=== PATIENT | male | born 1990 | race Caucasian/White ===

== ENCOUNTER 2016-04-06 20:06 | Emergency (ER) | payer OTHER ==
[2016-04-06 20:25] VITALS: BP 119/60; PULSE 77; TEMP 98.2; BMI 27.2
[2016-04-06] MEDS ORDERED: ERYTHROMYCIN 0.5% OPHTHALMIC OINTMENT 3.5 GM TUBE OS ONE (21:42)
--- NOTE | 2016-04-06 21:47 | PDOC ---
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 lost balance on his ladder and fell backwards striking his ear and had an acute onset onset of pain to his ear. States had some drainage last night but is since resolved. He, no visual changes no redness, no drainage, no fevers or swelling , but states feels he still has a fragment the upper aspect of his eye/eyelid. Occurred: reports: yesterday Severity: reports: mild Pain Location: reports: face, head Method of Injury: Yes: direct blow, fall Loss of Consciousness: no loss of consciousness Associated Symptoms (Fall): denies symptoms Past History - Travel Traveled outside of the country in the last 30 days: No Close contact w/someone who was outside of country & ill: No - Past Medical History Allergies/Adverse Reactions: Allergies Allergy/AdvReac Type Severity Reaction Status Date / Time No Known Allergies Allergy Verified 10/04/15 13:29 Home Medications: Ambulatory Orders NK [No Known Home Medication] 09/26/15 - Immunization History Immunization Up to Date: Yes (2015) - Psycho/Social/Smoking Cessation Hx Anxiety: No Suicidal Ideation: No Smoking History: Never smoked Have you smoked in the past 12 months: No Hx Alcohol Use: Yes (SOCIAL) Drug/Substance Use Hx: No Substance Use Type: None Review of Systems - Review of Systems Able to Perform ROS?: Yes Is the patient limited Tajik proficient: Yes Constitutional: Yes: Symptoms Reported, See HPI, Malaise. No: Fever HEENTM: Yes: Symptoms Reported, See HPI, Eye Pain, Tearing, Ear Pain, Ear Discharge. No: Blurred Vision Respiratory: Yes: See HPI. No: Symptoms reported Integumentary: Yes: Symptoms Reported, See HPI Neurological: Yes: Symptoms reported, See HPI. No: Headache All Other Systems: Reviewed and Negative *Physical Exam - Vital Signs Last Vital Signs Temp Pulse Resp BP Pulse Ox 98.2 F 77 16 119/60 98 04/06/16 20:24 04/06/16 20:24 04/06/16 20:24 04/06/16 20:24 04/06/16 20:24 - Physical Exam General Appearance: Yes: Nourished, Appropriately Dressed, Apparent Distress, Moderate Distress HEENT: positive: DHARA, Pharynx Normal, TM Dull (patient right TM appears to have a perforation at 1. /2:00 with no drainage in canal. reports patient has had extensive problems with his ears per history.), Other (I diet is mildly injected, and tearing. No purulent drainage, no swelling. Fluoresceined staining after tetracaine resolved foreign body sensation the patient reports at 12:00 on lid. No foreign body detected on cornea, no corneal abrasion or no ulcerations noted. Sweeping lid with Q-tip extracted a small dark fragment consistent with a foreign body. After 30 minutes and loss of anesthesia patient states did not feel the foreign body sensation any longer.). negative: Normal ENT Inspection, TMs Normal (right TM looks to be perforated, with no drainage or serious/purulent or bloody drainage in canal.), Nasal Congestion Neck: positive: Supple. negative: Tender Respiratory/Chest: negative: Chest Tender Integumentary: positive: Normal Color, Dry, Warm, Pale. negative: Swelling, Ecchymosis, Bruising Neurologic: positive: detention sergeant II-XII NML intact, Fully Oriented, Alert, Normal Mood/ Affect, Normal Response, Motor Strength 5/5 Progress Note - Progress Note Progress Note: Foreign body to right eyelid extracted, no corneal abrasion. Treated with erythromycin ointment for soothing and prophylaxis Right TM perforated, secondary to trauma versus chronic uncertain. No evidence of infection therefore we will have follow-up with ear nose and throat doctor when possible *DC/Admit/Observation/Transfer Diagnosis at time of Disposition: Foreign body of right eyelid Tympanic membrane disorder Qualifiers: Laterality: right Qualified Code(s): H73.91 - Unspecified disorder of tympanic membrane, right ear - Discharge Dispostion Disposition: HOME Condition at time of disposition: Stable Admit: No - Referrals Referrals: John Gandhi MD [Staff Physician] - - Patient Instructions Printed Discharge Instructions: DI for Tympanic Membrane Perforation-Adult Additional Instructions: Rest, avoid rubbing eyes use eye ointment 3 times a day for 2-3 days as directed, wash hands after use May use Tylenol or Motrin for pain relief Followup with ophthalmology or private physician as needed Follow-up with ear nose and throat doctor for evaluation of right eardrum perforation - Post Discharge Activity Work/School Note: Back to Work
[2016-04-06] MEDS ORDERED: ERYTHROMYCIN 0.5% OPHTHALMIC OINTMENT 3.5 GM TUBE ONE (21:49)
== END 2016-04-06 21:54 | disposition home or self-care (01) ==
LOC: JERFT 20:06
PROC: 08CNXZZ Extirpation of Matter from Right Upper Eyelid, External Approach (ICD-10-PCS; principal; 2016-04-06)
DX: T15.11XA Foreign body in conjunctival sac, right eye, initial encounter (principal); S09.21XA Traumatic rupture of right ear drum, initial encounter; W11.XXXA Fall on and from ladder, initial encounter; Y93.H3 Activity, building and construction; Y92.89 Other specified places as the place of occurrence of the external cause
CPT/HCPCS: 99281-25

== ENCOUNTER 2016-04-17 14:22 | Emergency (ER) | payer OTHER ==
--- NOTE | 2016-04-17 14:26 | PDOC ---
Rapid Medical Evaluation Time Seen by Provider: 04/17/16 14:24 Medical Evaluation: Allergies Allergy/AdvReac Type Severity Reaction Status Date / Time No Known Allergies Allergy Verified 10/04/15 13:29 04/17/16 14:25 26 yo M c/o LLQ pain radiating down towards left testicle x5d. Denies any swelling or injury. Turkish speaking/family(irb compliance coordinator) present
[2016-04-17 14:28] VITALS: BMI 27.2
[2016-04-17 15:15] LABS: URINE APPEARANCE CLOUDY; URINE BILIRUBIN NEGATIVE (NEGATIVE); URINE BLOOD NEGATIVE (NEGATIVE); URINE COLOR YELLOW; URINE GLUCOSE (UA) NEGATIVE (NEGATIVE); URINE KETONE NEGATIVE (NEGATIVE); URINE LEUK ESTERASE NEGATIVE (NEGATIVE); URINE NITRITE NEGATIVE (NEGATIVE); URINE PROTEIN NEGATIVE (NEGATIVE); URINE UROBILINOGEN NEGATIVE E.U./dl (0.2-1.0)
--- NOTE | 2016-04-17 15:35 | PDOC ---
History of Present Illness - General History Source: Patient, Family Exam Limitations: No Limitations - History of Present Illness Initial Comments: 04/17/16 15:40 The patient is a 26-year-old Occitan-Speaking man, accompanied by spouse, with no past medical history who presents to the emergency department via walk-in for further evaluation of a 5 day history of persistent left testicular pain. Information was obtained by patient's spouse who speaks Citizen Of [place]. No trauma, strenuous activity. Patent's spouses states that his pain started on his left lower back that radiates down his left testicle. Patient states that his pain was initially intermittent and bearable, but for the past 24 hours, his pain has become more severe. He also notes associated symptoms of urinary urgency. No fever, chills, weakness, chest pain, abdominal pain, nausea, vomiting, dysuria. Allergies: No Known Drug Allergies Past Surgical History: None reported. Social History: No tobacco and recreational drug use. Social ETOH use. <Neida Davis - Last Filed: 04/17/16 15:58> <Maria De Jesus Grimaldo - Last Filed: 04/19/16 08:02> - General Chief Complaint: Pain Stated Complaint: ABD PAIN /BACK Time Seen by Provider: 04/17/16 14:24 Past History <Neida Davis - Last Filed: 04/17/16 15:58> - Past Medical History Other medical history: DENIES - Immunization History Immunization Up to Date: Yes (2015) - Psycho/Social/Smoking Cessation Hx Anxiety: No Suicidal Ideation: No Smoking History: Never smoked Have you smoked in the past 12 months: No Information on smoking cessation initiated: No Hx Alcohol Use: Yes (SOCIAL) Drug/Substance Use Hx: No Substance Use Type: None <Maria De Jesus Grimaldo - Last Filed: 04/19/16 08:02> - Past Medical History Allergies/Adverse Reactions: Allergies Allergy/AdvReac Type Severity Reaction Status Date / Time No Known Allergies Allergy Verified 04/17/16 14:28 Home Medications: Ambulatory Orders NK [No Known Home Medication] 09/26/15 Review of Systems - Review of Systems Able to Perform ROS?: Yes Comments:: 04/17/16 15:40 GENERAL/CONSTITUTIONAL: No fever or chills. No weakness. HEAD, EYES, EARS, NOSE AND THROAT: No change in vision. No ear pain or discharge. No sore throat. CARDIOVASCULAR: No chest pain or shortness of breath. RESPIRATORY: No cough, wheezing, or hemoptysis. GASTROINTESTINAL: No nausea, vomiting, diarrhea or constipation. GENITOURINARY: Yes: Left testicle discomfort. No dysuria, frequency, or change in urination. MUSCULOSKELETAL: Yes: Left lower back pain. No joint or muscle swelling or pain. No neck pain. SKIN: No rash NEUROLOGIC: No headache, vertigo, loss of consciousness, or change in strength/ sensation. ENDOCRINE: No increased thirst. No abnormal weight change. HEMATOLOGIC/LYMPHATIC: No anemia, easy bleeding, or history of blood clots. ALLERGIC/IMMUNOLOGIC: No hives or skin allergy. <Neida Davis - Last Filed: 04/17/16 15:58> *Physical Exam - Vital Signs Last Vital Signs Temp Pulse Resp BP Pulse Ox 98.2 F 72 18 132/78 99 04/17/16 14:24 04/17/16 14:24 04/17/16 14:24 04/17/16 14:24 04/17/16 14:24 - Physical Exam Comments: 04/17/16 15:41 GENERAL: Awake, alert, and fully oriented, in no acute distress HEAD: No signs of trauma EYES: PERRLA, EOMI, sclera anicteric, conjunctiva clear ENT: Auricles normal inspection, hearing grossly normal, nares patent, oropharynx clear without exudates. Moist mucosa NECK: Normal ROM, supple, no lymphadenopathy, JVD, or masses LUNGS: Breath sounds equal, clear to auscultation bilaterally. No wheezes, and no crackles HEART: Regular rate and rhythm, normal S1 and S2, no murmurs, rubs or gallops ABDOMEN: Soft, nontender, normoactive bowel sounds. No guarding, no rebound. No masses : Left testicle tenderness. Normal line. EXTREMITIES: Normal range of motion, no edema. No clubbing or cyanosis. No cords, erythema, or tenderness NEUROLOGICAL: Cranial nerves II through XII grossly intact. Normal speech. <Neida Davis - Last Filed: 04/17/16 15:58> - Vital Signs Last Vital Signs Temp Pulse Resp BP Pulse Ox 98.2 F 72 18 132/78 99 04/17/16 14:24 04/17/16 14:24 04/17/16 14:24 04/17/16 14:24 04/17/16 14:24 - Physical Exam Comments: Correction to scribe exam- shows L testicle with normal lie (not line). <Maria De Jesus Grimaldo - Last Filed: 04/19/16 08:02> ED Treatment Course - LABORATORY CBC & Chemistry Diagram: 04/17/16 15:50 04/17/16 15:50 - ADDITIONAL ORDERS Additional order review: Laboratory Results 04/17/16 15:00 Urine Color Yellow Urine Appearance Cloudy Urine pH 7.0 Ur Specific [place] 1.019 Urine Protein Negative Urine Glucose (UA) Negative Urine Ketones Negative Urine Blood Negative Urine Nitrite Negative Urine Bilirubin Negative Urine Urobilinogen Negative Ur Leukocyte Esterase Negative <Neida Davis - Last Filed: 04/17/16 15:58> - LABORATORY CBC & Chemistry Diagram: 04/17/16 15:50 04/17/16 15:50 - ADDITIONAL ORDERS Additional order review: Laboratory Results 04/17/16 15:00 Urine Color Yellow Urine Appearance Cloudy Urine pH 7.0 Ur Specific [place] 1.019 Urine Protein Negative Urine Glucose (UA) Negative Urine Ketones Negative Urine Blood Negative Urine Nitrite Negative Urine Bilirubin Negative Urine Urobilinogen Negative Ur Leukocyte Esterase Negative <Maria De Jesus Grimaldo - Last Filed: 04/19/16 08:02> Medical Decision Making - Medical Decision Making 04/17/16 16:[address] Santos at shift change. Pt presents with L testicular pain. No erythema, induration, or masses on exam, but noted to have moderate tenderness. UA wnl. Awaiting ultrasound to further evaluate. <Maria De Jesus Grimaldo - Last Filed: 04/19/16 08:02> *DC/Admit/Observation/Transfer - Attestations Scribe Attestion: 04/17/16 15:41 Documentation prepared by Neida Davis, acting as medical billing assistant for Maria De Jesus Grimaldo MD. <Neida Davis - Last Filed: 04/17/16 15:58> <Maria De Jesus Grimaldo - Last Filed: 04/19/16 08:02> Diagnosis at time of Disposition: Testicular pain, left, Varicocele - Discharge Dispostion Disposition: HOME Condition at time of disposition: Stable - Referrals Referrals: Chris Haas MD [Staff Physician] - - Patient Instructions Printed Discharge Instructions: DI for Varicocele, DI for Testicular Pain Print Language: PUERT[place] RICAN
[2016-04-17] MEDS ORDERED: KETOROLAC TROMETHAMINE 30 MG/1 ML VIAL IVPUSH ONE (15:36)
[2016-04-17] MEDS ORDERED: KETOROLAC TROMETHAMINE 30 MG/1 ML VIAL ONE (15:40)
[2016-04-17 16:02] LABS: EOSINOPHIL 4.6 % (0-4.5); MCH 28.7 pg (25.7-33.7); MCHC 34.2 g/dl (32.0-35.9); MEAN CELL VOLUME 83.9 fl (80-96); MEAN PLT VOLUME 9.8 fl (7.5-11.1); NEUTROPHILS 47.9 % (42.8-82.8); PLATELET COUNT 219 K/MM3 (134-434); RDW 13.1 % (11.9-15.9); WHITE BLOOD COUNT 6.3 K/mm3 (4.0-10.0)
[2016-04-17 16:20] LABS: ALBUMIN 4.1 g/dl (3.4-5.0); ALK PHOS 106 U/L (45-117); ANION GAP 8 (8-16); CALCIUM 9.5 mg/dL (8.5-10.1); CO2 29 mmol/L (21-32); CREATININE 0.7 mg/dL (0.7-1.3); GLUCOSE,RANDOM 84 mg/dL (74-106); SGOT/AST 21 U/L (15-37); SGPT/ALT 37 U/L (12-78)
[2016-04-17 16:21] LABS: BILIRUBIN,TOTAL 0.8 mg/dL (0.2-1.0); TOT PROT 7.4 g/dl (6.4-8.2)
--- NOTE | 2016-04-17 18:26 | PDOC ---
*Physical Exam - Vital Signs Last Vital Signs Temp Pulse Resp BP Pulse Ox 98.2 F 72 18 132/78 99 04/17/16 14:24 04/17/16 14:24 04/17/16 14:24 04/17/16 14:24 04/17/16 14:24 ED Treatment Course - LABORATORY CBC & Chemistry Diagram: 04/17/16 15:50 04/17/16 15:50 - ADDITIONAL ORDERS Additional order review: Laboratory Results 04/17/16 04/17/16 15:50 15:00 Sodium 140 Potassium 4.0 Chloride 103 Carbon Dioxide 29 Anion Gap 8 BUN 13 Creatinine 0.7 Creat Clearance w eGFR > 60 Random Glucose 84 Calcium 9.5 Total Bilirubin 0.8 AST 21 ALT 37 Alkaline Phosphatase 106 Total Protein 7.4 Albumin 4.1 Urine Color Yellow Urine Appearance Cloudy Urine pH 7.0 Ur Specific [place] 1.019 Urine Protein Negative Urine Glucose (UA) Negative Urine Ketones Negative Urine Blood Negative Urine Nitrite Negative Urine Bilirubin Negative Urine Urobilinogen Negative Ur Leukocyte Esterase Negative 04/17/16 15:50 RBC 5.17 MCV 83.9 MCHC 34.2 RDW 13.1 MPV 9.8 Neutrophils % 47.9 Lymphocytes % 38.0 Monocytes % 8.5 Eosinophils % 4.6 H Basophils % 1.0 - Medications Given in the ED: ED Medications Discontinued Medications Generic Name Dose Route Start Last Admin Trade Name Dameonq PRN Reason Stop Dose Admin Ketorolac Tromethamine 30 mg 04/17/16 15:36 04/17/16 15:52 Toradol Injection - IVPUSH 04/17/16 15:37 30 mg ONCE ONE Administration Medical Decision Making - Medical Decision Making 04/17/16 18:22 pt endorsed to me by dr. melgoza. pt is a 26 y/o male with atraumatic left testicular pain for one week. In the ER, patient is awake and alert, afebrile, hemodynamically stable. CBC/CMP/UA within normal limit. There is no evidence of pyuria. Scrotal 7 shows no evidence of testicular torsion or epididymitis. Right and left epididymal head cysts as well as left varicocele is noted. I do not suspect an infectious process at this time. Will discharge with urology follow-up as an outpatient. *DC/Admit/Observation/Transfer Diagnosis at time of Disposition: Testicular pain, left, Varicocele - Discharge Dispostion Disposition: HOME Condition at time of disposition: Stable - Referrals Referrals: Chris Haas MD [Staff Physician] - - Patient Instructions Printed Discharge Instructions: DI for Testicular Pain, DI for Varicocele Print Language: GREEK
[2016-04-17 19:14] VITALS: BP 122/74; PULSE 80; TEMP 98.6
== END 2016-04-17 19:11 | disposition home or self-care (01) ==
LOC: JER 14:22
PROC: 3E0333Z Introduction of Anti-inflammatory into Peripheral Vein, Percutaneous Approach (ICD-10-PCS; principal; 2016-04-17)
DX: N50.812 Left testicular pain (principal); I86.1 Scrotal varices
CPT/HCPCS: 36415; 76870-TC; 80053; 81003; 85025; 99284-25

== ENCOUNTER 2016-05-22 15:04 | Emergency (ER) | payer OTHER ==
[2016-05-22 15:09] VITALS: BP 135/66; PULSE 73; TEMP 97.8; BMI 27.2
--- NOTE | 2016-05-22 16:31 | PDOC ---
History of Present Illness - General Chief Complaint: Laceration Stated Complaint: LT MID FINGER LACERATION Time Seen by Provider: 05/22/16 16:29 History Source: Patient Exam Limitations: No Limitations - History of Present Illness Initial Comments: CHIEF COMPLAINT: 26 y/o afebrile male with no significant PMH c/o left finger laceration. HISTORY OF PRESENT ILLNESS: The patient states he cut the middle finger of his left hand on a saw while working today. He denies numbness/tingling and can move his finger normally. He states his tetanus is UTD as he received on last year after a leg laceration. He did not clean the wound prior to coming to the ER. Vital signs on arrival are within normal limits. REVIEW OF SYSTEMS: GENERAL/CONSTITUTIONAL: No fever/chills. No weakness. No weight change. HEAD, EYES, EARS, NOSE AND THROAT: No change in vision. No ear pain or discharge. No sore throat. MUSCULOSKELETAL: +laceration to left finger. No neck or back pain. SKIN: No rash or easy bruising. NEUROLOGIC: No headache, vertigo, loss of consciousness, or loss of sensation. PHYSICAL EXAM: GENERAL: The patient is awake, alert, and fully oriented, in no acute distress. HEAD: Normal with no signs of trauma. EYES: Pupils equal, round and reactive to light, extraocular movements intact, sclera anicteric, conjunctiva clear. EXTREMITIES: Normal range of motion, no edema. 3cm linear laceration to medial , dorsal 3rd digit of left hand with no active bleeding. Laceration does no appear to be very deep. Margins well approximated. Pt can fully flex and extend the affected finger. Sensation intact in affected finger. NEUROLOGICAL: Normal speech, normal gait. SKIN: Warm, Dry, normal turgor, no rashes or lesions noted. Past History - Past Medical History Allergies/Adverse Reactions: Allergies Allergy/AdvReac Type Severity Reaction Status Date / Time No Known Allergies Allergy Verified 05/22/16 15:09 Home Medications: Ambulatory Orders NK [No Known Home Medication] 09/26/15 Other medical history: NONE - Immunization History Immunization Up to Date: Yes (2015) - Psycho/Social/Smoking Cessation Hx Anxiety: No Suicidal Ideation: No Smoking History: Never smoked Have you smoked in the past 12 months: No Hx Alcohol Use: No Drug/Substance Use Hx: No Substance Use Type: None *Physical Exam - Vital Signs Last Vital Signs Temp Pulse Resp BP Pulse Ox 97.8 F 73 20 135/66 98 05/22/16 15:07 05/22/16 15:07 05/22/16 15:07 05/22/16 15:07 05/22/16 15:07 Procedures - Laceration/Wound Repair Left Medial Dorsal 3rd digit Finger Wound Length: 2.6 to 5.0 cm Wound Explored: clean Wound's Depth, Shape: superficial, linear Irrigated w/ Saline: Yes Betadine Prep: Yes Anesthesia: 1% Lidocaine (Digital block) Amount of Anesthetic (ccs): 5 Wound Debrided: minimal Wound Repaired With: Sutures Suture Size/Type: 4:0 Number of Sutures: 5 Sterile Dressing Applied: Yes Splint Applied: Yes Type of Splint Applied: Finger splint Medical Decision Making - Medical Decision Making A/P: 26 y/o afebrile male with laceration to left 3rd finger. Performed digital block to the affected finger. Irrigated the wound copiously with normal saline. Sutured the wound with 5 sutures. Pt tolerated procedure well. Applied finger splint to covered finger and instructed the patient to keep the area covered and in the splint if working with his hands as to prevent bending finger as the laceration crosses the PIP joint. INstructed him to keep dry for 24 hours, then wash gently with warm soap and water. Pt instructed to return to the ER with any worsening or concerning symptoms. The patient verbalizes understanding of all instructions, has no further questions and is awaiting discharge. *DC/Admit/Observation/Transfer Diagnosis at time of Disposition: Finger laceration Qualifiers: Encounter type: initial encounter Qualified Code(s): S61.219A - Laceration without foreign body of unspecified finger without damage to nail, initial encounter - Discharge Dispostion Disposition: HOME Condition at time of disposition: Improved - Patient Instructions Printed Discharge Instructions: DI for Laceration Repair Additional Instructions: Discharge Instructions: -Keep area dry for 24 hours -After 24 hours gently clean area with soap and water and then cover -Keep finger splint on while working or bending fingers -Return to the ER in 7-10 days for suture removal Print Language: ARABIC
== END 2016-05-22 17:18 | disposition home or self-care (01) ==
LOC: JERFT 15:04
PROC: 0HQGXZZ Repair Left Hand Skin, External Approach (ICD-10-PCS; principal; 2016-05-22)
DX: S61.213A Laceration without foreign body of left middle finger without damage to nail, initial encounter (principal); W31.9XXA Contact with unspecified machinery, initial encounter; Y93.89 Activity, other specified; Y92.9 Unspecified place or not applicable; Y99.0 Civilian activity done for income or pay
CPT/HCPCS: 99282-25

== ENCOUNTER 2018-02-09 12:55 | Day surgery (SDC) | payer OTHER ==
[2018-02-09 13:10] VITALS: BMI 27.9
--- NOTE | 2018-02-09 13:13 | PDOC ---
History of Present Illness - General Chief Complaint: Pain Stated Complaint: ABDOMINAL PAIN Time Seen by Provider: 02/09/18 13:07 History Source: Patient Exam Limitations: No Limitations - History of Present Illness Initial Comments: 02/09/18 13:55 Patient is a 28-year-old male with no past medical or surgical history, who presents to the emergency department today for abdominal pain. Patient states his pain began at 1 AM this morning and was located around the belly button. He describes it as a cramping sharp sensation. Denies eating new foods. Last meal was dinner at approximately 8pm in which he had eggs, toast and jam. He has not been able to eat today. He states that he has not taken any medication for the pain. He states that the pain has gotten worse over the course of the day. Denies fevers, chills, vomiting, diarrhea, constipation, frequency, urgency and hematuria. Past History - Travel Traveled outside of the country in the last 30 days: No Close contact w/someone who was outside of country & ill: No - Past Medical History Allergies/Adverse Reactions: Allergies Allergy/AdvReac Type Severity Reaction Status Date / Time No Known Allergies Allergy Verified 02/09/18 13:04 Home Medications: Ambulatory Orders NK [No Known Home Medication] 09/26/15 COPD: No - Immunization History Immunization Up to Date: Yes (2015) - Suicide/Smoking/Psychosocial Hx Smoking History: Never smoked Have you smoked in the past 12 months: No Information on smoking cessation initiated: No Hx Alcohol Use: No Drug/Substance Use Hx: No Substance Use Type: None Review of Systems - Review of Systems Able to Perform ROS?: Yes Comments:: 02/09/18 13:13 CONSTITUTIONAL: Absent: fever, chills, diaphoresis, generalized weakness, malaise, loss of appetite HEENT: Absent: rhinorrhea, nasal congestion, throat pain, throat swelling, difficulty swallowing, mouth swelling, ear pain, eye pain, visual Changes CARDIOVASCULAR: Absent: chest pain, loss of consciousness, palpitations, irregular heart rate, peripheral edema RESPIRATORY: Absent: cough, shortness of breath, dyspnea with exertion, orthopnea, wheezing, stridor, hemoptysis GASTROINTESTINAL: Present: abdominal pain Absent: abdominal distension, nausea, vomiting, diarrhea , constipation, melena, hematochezia GENITOURINARY: Absent: dysuria, frequency, urgency, hesitancy, hematuria, flank pain, genital pain MUSCULOSKELETAL: Absent: myalgia, arthralgia, joint swelling SKIN: Absent: rash, itching, pallor HEMATOLOGIC/IMMUNOLOGIC: Absent: easy bleeding, easy bruising, lymphadenopathy, frequent infections ENDOCRINE: Absent: unexplained weight gain, unexplained weight loss, heat intolerance, cold intolerance NEUROLOGIC: Absent: headache, focal weakness or paresthesias, dizziness, unsteady gait, seizure, mental status changes, bladder or bowel incontinence PSYCHIATRIC: Absent: anxiety, depression, suicidal or homicidal ideation, hallucinations. Is the patient limited Macedonian proficient: No *Physical Exam - Vital Signs Last Vital Signs Temp Pulse Resp BP Pulse Ox 98.1 F 54 L 18 128/59 L 100 02/09/18 13:04 02/09/18 13:04 02/09/18 13:04 02/09/18 13:04 02/09/18 13:04 - Physical Exam Comments: 02/09/18 13:13 GENERAL: Well developed, well nourished. Awake and alert. Pt appears uncomfortable, hunched over in exam chair. HEENT: Normocephalic, atraumatic. PERRLA, EOMI. No conjunctival pallor. Sclera are non- icteric. Moist mucous membranes. Oropharynx is clear. NECK: Supple. Full ROM. No JVD. Carotid pulses 2+ and symmetric, without bruits. No thyromegaly. No lymphadenopathy. CARDIOVASCULAR: Regular rate and rhythm. No murmurs, rubs, or gallops. Distal pulses are 2+ and symmetric. PULMONARY: No evidence of respiratory distress. Lungs clear to auscultation bilaterally. No wheezing, rales or rhonchi. ABDOMINAL: TTP of the epigastric region and the periumbilical region. (+) guarding, and rovsing signs. Soft. Non-distended. No organomegaly. Normoactive bowel sounds. MUSCULOSKELETAL Normal range of motion at all joints. No bony deformities or tenderness. No CVA tenderness. EXTREMITIES: No cyanosis. No clubbing. No edema. No calf tenderness. SKIN: Warm and dry. Normal capillary refill. No rashes. No jaundice. NEUROLOGICAL: Alert, awake, appropriate. Cranial nerves 2-12 intact. No deficits to light touch and temperature in face, upper extremities and lower extremities. No motor deficits in the in face, upper extremities and lower extremities. Normoreflexic in the upper and lower extremities. Normal speech. Toes are down- going bilaterally. Gait is normal without ataxia. PSYCHIATRIC: Cooperative. Good eye contact. Appropriate mood and affect. Moderate Sedation - Procedure Monitoring Vital Signs: Procedure Monitoring Vital Signs Temperature 98.1 F 02/09/18 13:04 Pulse Rate 54 L 02/09/18 13:04 Respiratory Rate 18 02/09/18 13:04 Blood Pressure 128/59 L 02/09/18 13:04 O2 Sat by Pulse Oximetry (%) 100 02/09/18 13:04 ED Treatment Course - LABORATORY CBC & Chemistry Diagram: 02/09/18 13:47 02/09/18 13:47 Medical Decision Making - Medical Decision Making 02/09/18 14:01 Patient is a 28-year-old male who presents to the emergency department today with abdominal pain for one day. No surgical hx On exam patient appears uncomfortable potential for the exam chair. There is palpation of the epigastric and periumbilical regions. DDX includes: Pancreatitis, appendicitis, gastritis, PUD, gastroenteritis Labs, urine, medication and CT scan were ordered at this time. Reevaluate 02/09/18 18:00 Pt with WBC count of 12.5, no shift. Lytes WNL. Urine is clean CT shows an acute appendicitis at this time. No perforation or abscess noted on CT Blood cultures obtained Metronidozole and ceftriaxone given 2nd liter of fluids running a this time 6mg of morphine given for pain Consulted Dr. Franco. States she will take the patient as an ASU case. *DC/Admit/Observation/Transfer Diagnosis at time of Disposition: Appendicitis Qualifiers: Appendicitis type: acute appendicitis Acute appendicitis type: with localized peritonitis Appendicitis gangrene presence: without gangrene Appendicitis perforation presence: without perforation Appendicitis abscess presence: without abscess Qualified Code(s): K35.30 - Acute appendicitis with localized peritonitis, without perforation or gangrene - Discharge Dispostion Condition at time of disposition: Guarded Decision to Admit order: Yes - Referrals - Patient Instructions - Post Discharge Activity
[2018-02-09] MEDS ORDERED: SODIUM CHLORIDE 1,000 ML IV STA (13:39)
[2018-02-09] MEDS ORDERED: ACETAMINOPHEN 1000 MG/100 ML VIAL (NON FORMULARY) IVPB ONE (13:39)
[2018-02-09] MEDS ORDERED: FAMOTIDINE 20 MG/50 ML IVPB 20 MG/50 ML MG IVPB ONE ×2 (13:40→13:44)
[2018-02-09] MEDS ORDERED: ACETAMINOPHEN INJECTION 100 ML IVPB ONE (13:44)
[2018-02-09 14:29] LABS: BASO % 0.4 % (0-2.0); EOS % 0.4 % (0-4.5); HEMATOCRIT 45.9 % (35.4-49); LYMPH % 11.9 % (8-40); MCH 29.6 pg (25.7-33.7); MCHC 34.9 g/dl (32.0-35.9); MEAN CELL VOLUME 84.7 fl (80-96); MEAN PLT VOLUME 10.4 fl (7.5-11.1); MONO % 5.7 % (3.8-10.2); NEUT % 81.6 % (42.8-82.8); PLATELET COUNT 224 K/MM3 (134-434); PROTHROMBIN TIME (PATIENT) 11.8 SEC (9.7-13.0); RBC 5.42 M/mm3 (4.00-5.60); RDW 12.8 % (11.9-15.9); WHITE BLOOD COUNT 12.5 K/mm3 (4.0-10.0)
[2018-02-09 14:45] LABS: ALBUMIN 4.7 g/dl (3.4-5.0); ALK PHOS 112 U/L (45-117); ANION GAP 7 MMOL/L (8-16); BILIRUBIN,TOTAL 0.7 mg/dL (0.2-1); BLOOD UREA NITROGEN 11 mg/dL (7-18); CHLORIDE 103 mmol/L (98-107); CO2 28 mmol/L (21-32); CREATININE 0.8 mg/dL (0.55-1.3); GLUCOSE,RANDOM 89 mg/dL (74-106); LIPASE 109 U/L (73-393); POTASSIUM 3.9 mmol/L (3.5-5.1); SGOT/AST 28 U/L (15-37); SGPT/ALT 50 U/L (13-61); SODIUM 137 mmol/L (136-145); TOT PROT 8.2 g/dl (6.4-8.2)
[2018-02-09 15:00] LABS: URINE APPEARANCE CLEAR; URINE BILIRUBIN NEGATIVE (<2.0 mg/dL); URINE COLOR LTYELLOW; URINE GLUCOSE (UA) NEGATIVE (NEGATIVE); URINE KETONE NEGATIVE (NEGATIVE); URINE LEUK ESTERASE NEGATIVE (NEGATIVE); URINE NITRITE NEGATIVE (NEGATIVE); URINE PROTEIN NEGATIVE (NEGATIVE); URINE UROBILINOGEN NEGATIVE mg/dL (0.2-1.0)
[2018-02-09] MEDS ORDERED: morphine CARPU-JECT 2 MG/1 ML DISP.SYRIN IVPUSH ONE (16:40)
[2018-02-09] MEDS ORDERED: MORPHINE SULFATE 2 MG/ML VIAL ONE (16:45)
[2018-02-09] MEDS ORDERED: CEFTRIAXONE 1,000 MG in DEXTROSE 5%-WATER - 50 ML IVPB ONE (17:24)
[2018-02-09] MEDS ORDERED: morphine CARPU-JECT 4 MG/1 ML DISP.SYRIN IVPUSH ONE (17:24)
[2018-02-09] MEDS ORDERED: morphine SULFATE 4 MG/ML VIAL ONE (17:30)
[2018-02-09] MEDS ORDERED: CEFTRIAXONE 1 GM/50 ML BAG ONE (17:30)
[2018-02-09] MEDS ORDERED: SODIUM CHLORIDE 1,000 ML IV SCH ×2 (17:30→17:40)
[2018-02-09] MEDS ORDERED: BUPIVACAINE HCL/PF 0.5% (5MG/ML) 10 ML VIAL ONE (18:15)
--- NOTE | 2018-02-09 19:11 | HP ---
Admitting History and Physical - Primary Care Physician PCP: none - Admission Chief Complaint: periumbilical and RLQ pain, nausea, chills History of Present Illness: 28yo M, healthy with no PMH/PSH except occasional smoker of cigarettes and marijuana, social drinker, began experiencing periumbilical pain early this morning, associated with dizziness, chills, nausea but no vomiting. He had 3 normal BMs this morning. Last po was dinner last night, but had some papaya juice about 10am and few sips of water in ED. In ER, he has wbc 13, mildly dehydrated by labs, and CT shows acute appendicitis without abscess or perforation. He is seen and examined in ER holding with girlfriend present, who helped translate. He is in moderate pain, but can move on stretcher. He complains of being thirsty and dry throat. Pain is periumbilical and RLQ. He feels it is getting worse. History Source: Patient, Significant Other (girlfriend at bedside) Limitations to Obtaining History: Language Barrier (Bur[place]ian - used phone spanish medical interpreter for OR consent) - Past Medical History Additional Past Medical History: denies - Past Surgical History Past Surgical History: Yes: None - Smoking History Smoking history: Current some day smoker (about once a week) Have you smoked in the past 12 months: Yes - Alcohol/Substance Use Hx Alcohol Use: Yes (social) History of Substance Use: reports: Marijuana (occasionally, last few days ago) - Social History ADL: Independent Occupation: works stocking fruit in grocery store Home Medications - Allergies Allergies/Adverse Reactions: Allergies Allergy/AdvReac Type Severity Reaction Status Date / Time No Known Allergies Allergy Verified 02/09/18 13:04 - Home Medications Home Medications: Ambulatory Orders NK [No Known Home Medication] 09/26/15 Family Disease History - Family Disease History Family History: Unremarkable (noncontributory) Review of Systems - Review of Systems Constitutional: reports: Chills, Loss of Appetite. denies: Fever Eyes: denies: Blurred Vision, Recent Change in Vision HENT: denies: Difficult Swallowing, Throat Pain Neck: denies: Swollen Glands, Tenderness Cardiovascular: denies: Chest Pain, Palpitations Respiratory: denies: Cough, SOB Gastrointestinal: reports: Abdominal Pain (with hpi), Nausea (with hpi). denies : Constipation, Diarrhea, Vomiting Genitourinary: denies: Burning, Dysuria Musculoskeletal: reports: Back Pain (with hpi). denies: Joint Pain, Muscle Pain Integumentary: denies: Change in Color, Rash Neurological: reports: Dizziness (with hpi). denies: Headache Physical Examination Vital Signs: Vital Signs Temperature 97.7 F 02/09/18 17:42 Pulse Rate 66 02/09/18 17:42 Respiratory Rate 18 02/09/18 17:42 Blood Pressure 123/75 02/09/18 17:42 O2 Sat by Pulse Oximetry (%) 100 02/09/18 17:42 Constitutional: Yes: Well Nourished, Calm, Moderate Distress Eyes: Yes: Conjunctiva Clear, EOM Intact HENT: Yes: Atraumatic, Normocephalic Neck: Yes: Supple, Trachea Midline Cardiovascular: Yes: Regular Rate and Rhythm. No: Murmur Respiratory: Yes: Regular, CTA Bilaterally Gastrointestinal: Yes: Normal Bowel Sounds (to hypoactive), Soft, Hernia (very small umbilical), Tenderness (RLQ at McBurney's, also diffusely but less than RLQ, least in LUQ). No: Distention ...Rectal Exam: Yes: Deferred Renal/: No: CVA Tenderness - Left, CVA Tenderness - Right Musculoskeletal: No: Joint Stiffness, Joint Swelling Extremities: No: Cool, Cyanosis Edema: No Peripheral Pulses WNL: Yes Integumentary: Yes: Tattoos. No: Jaundice, Rash Neurological: Yes: Alert, Oriented Psychiatric: Yes: Alert, Oriented Labs: CBC, BMP 02/09/18 13:47 02/09/18 13:47 CMP Sodium 137 mmol/L (136-145) 02/09/18 13:47 Potassium 3.9 mmol/L (3.5-5.1) 02/09/18 13:47 Chloride 103 mmol/L (98-107) 02/09/18 13:47 Carbon Dioxide 28 mmol/L (21-32) 02/09/18 13:47 Anion Gap 7 MMOL/L (8-16) L 02/09/18 13:47 BUN 11 mg/dL (7-18) 02/09/18 13:47 Creatinine 0.8 mg/dL (0.55-1.3) 02/09/18 13:47 Creat Clearance w eGFR > 60 (>60) 02/09/18 13:47 Random Glucose 89 mg/dL (74-106) 02/09/18 13:47 Calcium 9.0 mg/dL (8.5-10.1) 02/09/18 13:47 Total Bilirubin 0.7 mg/dL (0.2-1) 02/09/18 13:47 AST 28 U/L (15-37) 02/09/18 13:47 ALT 50 U/L (13-61) 02/09/18 13:47 Alkaline Phosphatase 112 U/L (45-117) 02/09/18 13:47 Total Protein 8.2 g/dl (6.4-8.2) 02/09/18 13:47 Albumin 4.7 g/dl (3.4-5.0) 02/09/18 13:47 Lipase 109 U/L (73-393) 02/09/18 13:47 INR, PTT INR 1.00 (0.83-1.09) 02/09/18 13:47 Urine Test Results Urine Color Ltyellow 02/09/18 13:47 Urine Appearance Clear 02/09/18 13:47 Urine pH 6.0 (5.0-8.0) 02/09/18 13:47 Ur Specific [place] 1.024 (1.010-1.035) 02/09/18 13:47 Urine Protein Negative (NEGATIVE) 02/09/18 13:47 Urine Glucose (UA) Negative (NEGATIVE) 02/09/18 13:47 Urine Ketones Negative (NEGATIVE) 02/09/18 13:47 Urine Blood Negative (NEGATIVE) 02/09/18 13:47 Urine Nitrite Negative (NEGATIVE) 02/09/18 13:47 Urine Bilirubin Negative (<2.0 mg/dL) 02/09/18 13:47 Ur Leukocyte Esterase Negative (NEGATIVE) 02/09/18 13:47 Imaging - Results Cat Scan: Report Reviewed, Image Reviewed (images personally reviewed - enlarged appendix with no abscess or perforation) Problem List - Problems (1) Acute appendicitis with generalized peritonitis, without abscess Assessment/Plan: admit to surgery 23H/satellite NPO/IVF got Ceftriaxone, Flagyl in ER; periop abx pain meds prn DVT prophylaxis Discussed with patient risks, benefits and alternatives of laparoscopic possible open appendectomy, including but not limited to bleeding, infection, injury to adjacent structures, intestinal leak or injury, intraabdominal abscess , incisional hernia, need for further procedures, ; alternatives include antibiotics, delayed or no surgery - risks of this include failure of nonoperative therapy, perforation, sepsis, recurrence, . Patient desires to proceed with operation - will take to OR for above. Informed consent signed for same using Bur[place]ian telephone spanish medical interpreter. Code(s): K35.20 - ACUTE APPENDICITIS WITH GEN PERITONITIS, WITHOUT ABSCESS Qualifiers: Appendicitis gangrene presence: without gangrene Appendicitis perforation presence: unspecified whether perforation present Qualified Code(s): K35.20 - Acute appendicitis with generalized peritonitis, without abscess (2) Right lower quadrant abdominal tenderness with rebound tenderness Code(s): R10.823 - RIGHT LOWER QUADRANT REBOUND ABDOMINAL TENDERNESS (3) Periumbilical abdominal pain Code(s): R10.33 - PERIUMBILICAL PAIN (4) Nausea alone Code(s): R11.0 - NAUSEA
[2018-02-09] MEDS ORDERED: fentaNYL CITRATE 250 MCG/5 ML VIAL ONE (19:33)
[2018-02-09] MEDS ORDERED: SUCCINYLCHOLINE CHLORIDE 200 MG/10 ML VIAL ONE (19:33)
[2018-02-09] MEDS ORDERED: PROPOFOL 20 ML ONE (19:33)
[2018-02-09] MEDS ORDERED: cefOXitin SODIUM 2 GM VIAL (RESTRICTED TO ID) IVPB ONE (19:37)
[2018-02-09] MEDS ORDERED: ceFAZolin SODIUM 1 GM VIAL IVPB ONE (19:37)
[2018-02-09] MEDS ORDERED: ROCURONIUM BROMIDE 50 MG/5 ML VIAL ONE (19:42)
[2018-02-09] MEDS ORDERED: CEFOXITIN SODIUM 1 GM IVPB ONE ×2 (19:44→19:45)
[2018-02-09] MEDS ORDERED: DEXAMETHASONE SOD PHOSPHATE 4 MG/1 ML VIAL ONE (19:59)
[2018-02-09] MEDS ORDERED: GLYCOPYRROLATE 0.2 MG/1 ML VIAL ONE (20:35)
[2018-02-09] MEDS ORDERED: NEOSTIGMINE METHYLSULFATE 0.5 MG/ML - 10 ML MDV ONE (20:35)
[2018-02-09] MEDS ORDERED: ONDANSETRON 4 MG/2 ML VIAL IVPUSH PRN (21:10)
--- NOTE | 2018-02-09 21:13 | OP ---
Operative Note - Note: Operative Date: 02/09/18 Pre-Operative Diagnosis: acute appendicitis with generalized peritonitis Operation: laparoscopic appendectomy Findings: enlarged, inflamed appendix, somewhat bulbous; yellow fluid in pelvis, suctioned Post-Operative Diagnosis: Same as Pre-op Surgeon: Clif Franco Anesthesiologist/GROUND SERVICES INSTRUCTOR: Venecia Villarreal Anesthesia: General, Local (10ml 0.5% marcaine) Specimens Removed: appendix to pathology Estimated Blood Loss (mls): 5 Drains & Tubes with Location: Randhawa out at end of case Drains, Volume Out (mls): 500 (UOP) Fluid Volume Replaced (mls): 1,200 (crystalloid) Operative Report Dictated: Yes
[2018-02-09] MEDS ORDERED: LACTATED RINGERS SOLUTION 1,000 ML IV SCH ×2 (21:15→21:28)
[2018-02-09] MEDS ORDERED: IBUPROFEN 800 MG/8 ML IJ IVPB ONE (21:20)
[2018-02-09] MEDS: IBUPROFEN 800 MG/8 ML IJ IVPB ONE (21:30)
--- NOTE | 2018-02-09 22:39 | OP ---
DATE OF OPERATION: 02/09/2018 PREOPERATIVE DIAGNOSIS: Acute appendicitis with generalized peritonitis. POSTOPERATIVE DIAGNOSIS: Acute appendicitis with generalized peritonitis. PROCEDURE: Laparoscopic appendectomy. SURGEON: Clif Franco MD ANESTHESIA: General endotracheal and local, 10 mL of 0.5% Marcaine. ESTIMATED BLOOD LOSS: 5 mL FLUIDS: Crystalloid 1200 mL. URINE OUTPUT: 500 mL SPECIMEN: Appendix to Pathology. FINDINGS: Enlarged, inflamed, somewhat bulbous appendix. Also, yellow fluid in the pelvis which was suctioned but not irrigated. DISPOSITION: Stable and extubated to PACU. INDICATION FOR PROCEDURE: Patient is a 28-year-old [facility] male with no significant past medical or surgical history, who began experiencing periumbilical pain early this morning, associated with some dizziness, chills, and nausea but no vomiting. His last p.o. was dinner last night, but he had some juice this morning and a little bit of water since. In the emergency room, he had a white count of 13,000, and a CT showed acute appendicitis without abscess or perforation. Both the CT and his exam were consistent with acute appendicitis with peritonitis as he was tender diffusely, although mostly in the right lower quadrant. Risks, benefits, and alternatives of laparoscopic, possible open appendectomy were discussed with the patient including, but not limited to, bleeding, infection, injury to adjacent structures, intestinal leak or injury, intraabdominal abscess, incisional hernia, need for further procedures, and alternatives inclusive of antibiotics and delayed or no surgery with attendant risks of failure of nonoperative therapy, perforation, sepsis, recurrence, and . This was done utilizing a Wol[place] telephone solar installation technician. The patient desired to proceed with the operation and signed informed consent for the same, for which he is now brought to the operating room. OPERATIVE TECHNIQUE: The patient was brought to the operating room, laid supine on the operating table. Sequential compression devices were applied to bilateral lower extremities. Two grams of cefoxitin were given as preoperative antibiotic in the OR. After induction and intubation by Anesthesia, patient's abdomen was clipped of hair. Randhawa catheter was placed in his bladder, which was removed at the end of the case, and his abdomen was prepped and draped in sterile fashion. A small infraumbilical midline incision was made with a scalpel and carried into subcutaneous tissues with electrocautery until the abdominal wall fascia was identified, scored, and elevated with Jarad clamps. Peritoneum was entered bluntly with the tip of a clamp and a fingertip inserted to ensure entry into the abdominal cavity and the absence of any underlying adhesions. A stay suture of 0 Vicryl was placed in the fascia in [id number] fashion for later closure, and the Rohan trocar was introduced directly into the abdominal cavity and secured in place with the balloon. The abdomen was insufflated with carbon dioxide. Patient was placed in Trendelenburg position, and a laparoscope inserted to inspect the abdominal cavity. Two additional 5-mm ports were placed under direct vision in the suprapubic and left lower quadrant areas. At which point, the appendix was easily identifiable in the right lower quadrant as an enlarged, inflamed, somewhat bulbous structure that jutted up from the rest of the intestines. The camera was moved to the left lower quadrant port. Two graspers were inserted through the other ports and used to manipulate the appendix, to identify the base near the cecum, appeared to be normal. One grasper was exchanged for a [place] dissector which was used to create a window in the mesentery at the base of the appendix where it joined the cecum, and a 45 purple load of the Endo WNE stapler was used to transect the appendiceal base at the cecal junction. The staple line was noted to be hemostatic. The appendix was manipulated again such that the mesoappendix was easily reachable, and a 45 white load of the Endo WEN stapler then used to come across the mesoappendix. One last little bit of tissue remained attached and required completion with an additional staple load. Just prior to this, the yellow fluid in the patient's pelvis had been suctioned with a suction drying oven tender tool. Irrigation was not undertaken. Once the appendix had been completely , it was placed in an Endo Catch, and the operative field and pelvis re-inspected, suctioned clear of any remaining fluid, and again, all staple lines were noted to be hemostatic. The appendix in the bag was then retrieved out the umbilical port site along with the port itself. With the camera in the left lower quadrant port, the suprapubic port was removed under direct vision, and then, the port and camera were also removed and the abdomen exsufflated of carbon dioxide. The suture was tied at the umbilicus to close the fascia there. Hemostasis was achieved in the port sites with electrocautery where necessary, and the skin was closed with 4-0 Vicryl subcuticular sutures including a running at the umbilicus. Benzoin and Steri-Strips were applied to each incision, and dressings of gauze and Tegaderm placed over these. Randhawa catheter was again removed from the patient's bladder at the end of the case. Counts were correct at the end of the procedure. Patient was then awakened and extubated by Anesthesia, moved back to a stretcher, and taken to the recovery room in stable condition, having tolerated the procedure well. Clif Franco M.D. [id number]
[2018-02-10] MEDS ORDERED: ACETAMINOPHEN 325 MG TABLET (FP) PO SCH
[2018-02-10] MEDS: ACETAMINOPHEN 325 MG TABLET (FP) PO SCH ×3 (00:47→12:26)
[2018-02-10] MEDS ORDERED: CEFOXITIN SODIUM/DEXTROSE,ISO 2 GM/50 ML BAG IVPB SCH (02:00)
[2018-02-10] MEDS: CEFOXITIN SODIUM 2 GM in DEXTROSE 5%-WATER - 100 ML IVPB SCH ×2 (02:22→10:38)
[2018-02-10] MEDS: IBUPROFEN 600 MG TABLET (FP) PO SCH ×2 (03:48→11:17)
[2018-02-10] MEDS: IBUPROFEN 800 MG/8 ML IJ IVPB ONE (08:01)
--- NOTE | 2018-02-10 08:43 | PN ---
Progress Note (short form) - Note Progress Note: ANESTHESIOLOGY POST-OP CHECK 28M s/p lap appendectomy under general anesthesia, POD #1. No acute complaints. Denies N/V. Pain 7/10 and tolerable. Vital Signs Temperature 98.3 F 02/10/18 06:44 Pulse Rate 90 02/10/18 06:44 Respiratory Rate 20 02/10/18 06:44 Blood Pressure 128/76 02/10/18 06:44 O2 Sat by Pulse Oximetry (%) 95 02/09/18 22:15 Active Medications Acetaminophen (Tylenol -) 650 mg PO Q6H [facility] Last Admin: 02/10/18 07:23 Dose: Not Given Cefoxitin Sodium 2 gm/ (Dextrose) 100 mls @ 200 mls/hr IVPB Q8H-IV JOHN PAUL; Protocol Stop: 02/10/18 10:29 Last Admin: 02/10/18 02:22 Dose: 200 mls/hr Lactated Ringer's (Lactated Ringers Solution) 1,000 mls @ 125 mls/hr IV ASDIR JOHN PAUL Last Admin: 02/09/18 21:28 Dose: 125 mls/hr Ibuprofen (Motrin -) 600 mg PO Q6H [facility] PAUL Last Admin: 02/10/18 03:48 Dose: 600 mg Gen: awake, alert, NAD No apparent anesthesia complications. Pain controlled. Continue management as per primary team.
[2018-02-10] MEDS ORDERED: IBUPROFEN 600 MG TABLET (FP) PO SCH ×2 (09:00)
[2018-02-10 12:04] VITALS: BP 127/69; PULSE 84; TEMP 98.4
--- NOTE | 2018-02-10 12:46 | DS ---
Physical Examination Vital Signs: Vital Signs Temperature 98.4 F 02/10/18 10:00 Pulse Rate 84 02/10/18 10:00 Respiratory Rate 18 02/10/18 10:00 Blood Pressure 127/69 02/10/18 10:00 O2 Sat by Pulse Oximetry (%) 95 02/09/18 22:15 Findings/Remarks: Pt seen in solarium with girlfriend and examined back in bed, ambulating well. Admits to some pain, mostly umbilical. Pain is controlled with alternating tylenol and ibuprofen. He has tolerated breakfast, and is voiding in urinal. No flatus or BM yet, + belching. Pain in RLQ is nearly gone. Constitutional: Yes: Well Nourished, No Distress, Calm Eyes: Yes: Conjunctiva Clear, EOM Intact HENT: Yes: Atraumatic, Normocephalic Cardiovascular: Yes: Regular Rate and Rhythm Respiratory: Yes: Regular, CTA Bilaterally Gastrointestinal: Yes: Normal Bowel Sounds (normal to less, present in 4 quadrants), Soft, Distention (mild), Tenderness (mild RLQ, also incisional, mainly at umbilical site) Renal/: No: [place] Present, Incontinence Extremities: No: Cool, Cyanosis Integumentary: Yes: Incision (x3 dressed). No: Jaundice, Rash Wound/Incision: Yes: Steri Strips (under dressings), Dressing Dry and Intact (x3 ). No: Dressing Removed Neurological: Yes: Alert, Oriented. No: Unsteady Gait Labs: no new labs Discharge Summary Reason For Visit: ACUTE APPENDICITIS Current Active Problems Acute appendicitis with generalized peritonitis, without abscess (Acute) Nausea alone (Acute) Periumbilical abdominal pain (Acute) Right lower quadrant abdominal tenderness with rebound tenderness (Acute) Procedures: Principal: laparoscopic appendectomy Hospital Course: 28yo healthy M, occasional cigarette and MJ smoker and social drinker, presented with periumbilical pain for less than a day, associated with nausea, chills, but no vomiting. The pain also moved to the RLQ, and in ER, he had wbc 13, with CT showing acute appendicitis. He was taken to OR for uneventful laparoscopic appendectomy, and treated with perioperative antibiotics. Postop, pain has been controlled with alternating tylenol and ibuprofen. He has voided, been up ambulating, and tolerated diet. He is discharged home with lifting restrictions to f/u with surgery and a referral for primary care. Time spent on discharge 35 minutes. Condition: Good - Instructions Diet, Activity, Other Instructions: Postoperative instructions: You had a laparoscopic appendectomy on 02/09/[address] Clif Franco of [facility]. Activity: Resume your usual activities gradually, but no heavy exertion or lifting more than 10-15 pounds for 1 month. Remove dressings 48 hours after surgery; sticky tapes underneath will fall off by themselves. You may shower daily starting then, just pat the incision areas dry. No bath or swimming until skin incisions have healed. Eat lightly at first, but advance to your usual diet as tolerated. Pain: For pain, you may use and alternate Tylenol (acetaminophen, regular or extra strength) 1-2 pills and/or ibuprofen 200 mg (1-3 pills) every 6 hours each as needed; this means that you can take one OR the other at 3-hour intervals. If you are prescribed a Tylenol/narcotic combination for severe pain , use it instead of plain Tylenol as needed and switch back when your pain starts decreasing. Do not take more than 4000mg of acetaminophen in a day. Take medications as prescribed or indicated on the labeling. Follow-up: Call Dr. Franco's office at [phone] to make your postop appointment (Friday in 2-3 weeks after surgery). Clinic is held in the [facility] on the first floor of [facility]. Call the office if you have: * increasing pain not responsive to pain medication * fever of 101F or higher * vomiting * unusual or increasing bleeding or drainage from wounds * increasing redness or swelling at wound sites * inability to urinate Also, see your primary medical doctor within 1-2 weeks. If you do not have one, you have been given a referral to call for an appointment. Referrals: Artie Bennett MD [Staff Physician] - Disposition: HOME - Home Medications Comprehensive Discharge Medication List: Ambulatory Orders Acetaminophen [Tylenol .Regular Strength -] 650 mg PO Q6H tablet 02/10/18 Ibuprofen [Motrin -] 600 mg PO Q6H tablet 02/10/18
--- NOTE | 2018-02-12 15:46 | PATH ---
Surgical Pathology Report Patient Name: KOJO DELEON [facility]. Rec. #: [id number] /Age/Gender: 1990 (Age: 28) / M Account: [id number] Location: AMBULATORY SURG Taken: 02/09/2018 Received: 02/11/2018 Reported: 02/12/2018 Physicians: Alis Bhatti M.D. Specimen(s) Received APPENDIX Clinical History Acute appendicitis with peritonitis Final Diagnosis APPENDIX, APPENDECTOMY: ACUTE APPENDICITIS AND PERIAPPENDICITIS. Electronically Signed Zahra Means M.D. Gross Description Received in formalin, labeled "appendix," is a 7.5 cm. in length vermiform appendix with a stapled margin of resection and moderate attached fat. The serosa is maddox-zepeda with attached exudate. Sectioning reveals a markedly dilated lumen containing pus. The wall of the appendix averages 0.1 cm. in thickness. [employer] sections are submitted in one cassette. /02/11/2018 [facility]02/11/2018
== END 2018-02-10 13:00 | disposition home or self-care (01) ==
LOC: JER 12:55 → JASUSAT 19:06 → J8W 23:14 → JASUSAT 02-10 13:00
PROVIDERS: ATTEND Surgery
PROC: 0DTJ4ZZ Resection of Appendix, Percutaneous Endoscopic Approach (ICD-10-PCS; principal; 2018-02-09 19:50)
DX: K35.33 Acute appendicitis with perforation, localized peritonitis, and gangrene, with abscess (principal)
CPT/HCPCS: 36415; 74177-TC; 80053; 81003; 83690; 85025; 85610; 87040; 87086; 88304-TC; 94760; 99285-25; J0131; J7030

== ENCOUNTER 2019-04-23 11:22 | Emergency (ER) | payer SELFPAY ==
[2019-04-23 11:36] VITALS: TEMP 98.1; BMI 27.6
[2019-04-23] MEDS ORDERED: SODIUM CHLORIDE 1,000 ML IV STA (12:48)
[2019-04-23] MEDS ORDERED: ONDANSETRON 4 MG/2 ML VIAL IVPUSH ONE (12:48)
[2019-04-23] MEDS ORDERED: FAMOTIDINE 20 MG/50 ML IVPB 20 MG/50 ML MG IVPB ONE ×2 (12:48→13:11)
[2019-04-23] MEDS ORDERED: MAG HYDROX/AL HYDROX/SIMETH 30 ML UNIT-DOSE CUP PO ONE (12:49)
[2019-04-23] MEDS ORDERED: ONDANSETRON 4 MG/2 ML VIAL ONE (13:11)
[2019-04-23] MEDS ORDERED: MAG HYDROX/AL HYDROX/SIMETH 30 ML UNIT-DOSE CUP ONE (13:11)
[2019-04-23 13:26] LABS: BASO % 0.7 % (0-2.0); EOS % 1.7 % (0-4.5); HEMATOCRIT 45.8 % (35.4-49); LYMPH % 26.8 % (8-40); MCH 29.7 pg (25.7-33.7); MEAN CELL VOLUME 84.7 fl (80-96); MEAN PLT VOLUME 9.4 fl (7.5-11.1); MONO % 7.1 % (3.8-10.2); NEUT % 63.7 % (42.8-82.8); PLATELET COUNT 239 K/MM3 (134-434); RBC 5.41 M/mm3 (4.00-5.60); WHITE BLOOD COUNT 7.2 K/mm3 (4.0-10.0)
[2019-04-23 13:59] LABS: ALBUMIN 4.2 g/dl (3.4-5.0); BILIRUBIN,TOTAL 1.6 mg/dL (0.2-1); BLOOD UREA NITROGEN 11.8 mg/dL (7-18); CALCIUM 8.8 mg/dL (8.5-10.1); CREATININE 0.7 mg/dL (0.55-1.3); POTASSIUM 4.9 mmol/L (3.5-5.1); TOT PROT 7.9 g/dl (6.4-8.2)
--- NOTE | 2019-04-23 14:13 | PDOC ---
History of Present Illness - General History Source: Patient - History of Present Illness Timing/Duration: reports: other Abdominal Pain Onset Location: reports: epigastric Pain Radiation: reports: no radiation <Kriss Brownlee - Last Filed: 04/23/19 14:57> <Maria De Jesus Grimaldo - Last Filed: 04/23/19 16:56> - General Chief Complaint: Nausea/Vomiting Stated Complaint: HEARTBURN/VOMITING Time Seen by Provider: 04/23/19 11:56 Past History - Past Medical History COPD: No GI Disorders: Yes (GERD) - Immunization History Immunization Up to Date: Yes (2015) - Psycho Social/Smoking Cessation Hx Smoking History: Never smoked Have you smoked in the past 12 months: Yes Hx Alcohol Use: No Drug/Substance Use Hx: No Substance Use Type: None <Kriss Brownlee - Last Filed: 04/23/19 14:57> <Maria De Jesus Grimaldo - Last Filed: 04/23/19 16:56> - Past Medical History Allergies/Adverse Reactions: Allergies Allergy/AdvReac Type Severity Reaction Status Date / Time No Known Allergies Allergy Verified 04/23/19 11:36 Home Medications: Ambulatory Orders Acetaminophen [Tylenol .Regular Strength -] 650 mg PO Q6H tablet 02/10/18 Ibuprofen [Motrin -] 600 mg PO Q6H tablet 02/10/18 Acetaminophen [Tylenol -] 1,000 mg PO Q6H #30 tablet 04/23/19 Famotidine [Pepcid -] 20 mg PO BID #14 tablet 04/23/19 Mag Hydrox/Al Hydrox/Simeth [Mylanta Suspension -] 30 ml PO Q6H #1 bottle 04/23/19 Ondansetron HCl [Zofran] 4 mg PO Q8H #12 tablet 04/23/19 Review of Systems - Review of Systems Constitutional: No: Chills, Fever ABD/GI: Yes: Nausea, Vomiting. No: Blood Streaked Bowels, Constipated, Diarrhea : No: Dysuria, Flank Pain, Hematuria <Kriss Brownlee Last Filed: 04/23/19 14:57> *Physical Exam - Vital Signs Last Vital Signs Temp Pulse Resp BP Pulse Ox 98.1 F 75 16 127/67 100 04/23/19 11:33 04/23/19 11:33 04/23/19 11:33 04/23/19 11:33 04/23/19 11:33 - Physical Exam General Appearance: Yes: Appropriately Dressed. No: Apparent Distress HEENT: positive: Normal Voice. negative: Scleral Icterus (R), Scleral Icterus (L) Respiratory/Chest: negative: Respiratory Distress Gastrointestinal/Abdominal: positive: Tender (to epigastrium), Soft. negative: Distended, Guarding, Rebound Musculoskeletal: negative: CVA Tenderness Integumentary: positive: Dry, Warm Neurologic: positive: Fully Oriented, Alert, Normal Mood/Affect <Kriss Brownlee - Last Filed: 04/23/19 14:57> - Vital Signs Last Vital Signs Temp Pulse Resp BP Pulse Ox 98.1 F 72 20 117/62 100 04/23/19 11:33 04/23/19 14:50 04/23/19 14:50 04/23/19 14:50 04/23/19 14:50 <Maria De Jesus Grimaldo - Last Filed: 04/23/19 16:56> ED Treatment Course - LABORATORY CBC & Chemistry Diagram: 04/23/19 12:50 04/23/19 12:50 - ADDITIONAL ORDERS Additional order review: Laboratory Results 04/23/19 12:50 Sodium 139 Potassium 4.9 Chloride 106 Carbon Dioxide 29 Anion Gap 5 L BUN 11.8 Creatinine 0.7 Est GFR (CKD-EPI)AfAm 146.77 Est GFR (CKD-EPI)NonAf 126.64 Random Glucose 80 Calcium 8.8 Total Bilirubin 1.6 H AST 35 ALT 62 H Alkaline Phosphatase 99 Total Protein 7.9 Albumin 4.2 Lipase 98 04/23/19 12:50 RBC 5.41 MCV 84.7 MCHC 35.0 RDW 13.0 MPV 9.4 Neutrophils % 63.7 D Lymphocytes % 26.8 D Monocytes % 7.1 Eosinophils % 1.7 D Basophils % 0.7 - Medications Given in the ED: ED Medications Discontinued Medications Generic Name Dose Route Start Last Admin Trade Name Freq PRN Reason Stop Dose Admin Al Hydroxide/Mg Hydroxide 30 ml 04/23/19 12:49 04/23/19 13:20 Mylanta Oral Suspension - PO 04/23/19 12:50 30 ml ONCE ONE Administration Famotidine/Sodium Chloride 20 mg in 50 mls @ 100 mls/hr 04/23/19 12:48 04/23/19 13:45 Pepcid 20 Mg Premixed Ivpb - IVPB 04/23/19 13:17 100 mls/hr ONCE ONE Administration Sodium Chloride 1,000 mls @ 1,000 mls/hr 04/23/19 12:48 04/23/19 13:19 Normal Saline - IV 04/23/19 13:47 1,000 mls/hr ASDIR STA Administration Ondansetron HCl 4 mg 04/23/19 12:48 04/23/19 13:20 Zofran Injection IVPUSH 04/23/19 12:49 4 mg ONCE ONE Administration <Kriss Brownlee - Last Filed: 04/23/19 14:57> - LABORATORY CBC & Chemistry Diagram: 04/23/19 12:50 04/23/19 12:50 - ADDITIONAL ORDERS Additional order review: Laboratory Results 04/23/19 04/23/19 14:00 12:50 Sodium 139 Potassium 4.9 Chloride 106 Carbon Dioxide 29 Anion Gap 5 L BUN 11.8 Creatinine 0.7 Est GFR (CKD-EPI)AfAm 146.77 Est GFR (CKD-EPI)NonAf 126.64 Random Glucose 80 Calcium 8.8 Total Bilirubin 1.6 H AST 35 ALT 62 H Alkaline Phosphatase 99 Total Protein 7.9 Albumin 4.2 Lipase 98 Urine Color Yellow Urine Appearance Clear Urine pH 7.5 D Ur Specific [place] 1.021 Urine Protein Negative Urine Glucose (UA) Negative Urine Ketones Negative Urine Blood Negative Urine Nitrite Negative Urine Bilirubin Negative Urine Urobilinogen 0.2 Ur Leukocyte Esterase Negative 04/23/19 12:50 RBC 5.41 MCV 84.7 MCHC 35.0 RDW 13.0 MPV 9.4 Neutrophils % 63.7 D Lymphocytes % 26.8 D Monocytes % 7.1 Eosinophils % 1.7 D Basophils % 0.7 - Medications Given in the ED: ED Medications Discontinued Medications Generic Name Dose Route Start Last Admin Trade Name Freq PRN Reason Stop Dose Admin Al Hydroxide/Mg Hydroxide 30 ml 04/23/19 12:49 04/23/19 13:20 Mylanta Oral Suspension - PO 04/23/19 12:50 30 ml ONCE ONE Administration Famotidine/Sodium Chloride 20 mg in 50 mls @ 100 mls/hr 04/23/19 12:48 04/23/19 13:45 Pepcid 20 Mg Premixed Ivpb - IVPB 04/23/19 13:17 100 mls/hr ONCE ONE Administration Sodium Chloride 1,000 mls @ 1,000 mls/hr 04/23/19 12:48 04/23/19 13:19 Normal Saline - IV 04/23/19 13:47 1,000 mls/hr ASDIR STA Administration Ondansetron HCl 4 mg 04/23/19 12:48 04/23/19 13:20 Zofran Injection IVPUSH 04/23/19 12:49 4 mg ONCE ONE Administration <Maria De Jesus Grimaldo - Last Filed: 04/23/19 16:56> Medical Decision Making - Medical Decision Making 04/23/19 14:12 29-year-old male, s/p appy in 2018, here with upper abdominal pain with nausea and vomiting x 2 days, worse w/ some foods. No excessive belching, change in bowel movements, fever, chills or dysuria. No history of kidney stones or gallstones. No history of similar pain. No excessive alcohol or NSAID use per patient see exam ?gastritis/GERD, s/p appy remotely, unlikely uti/pyelo/renal colic or pancreatitis -trial of GI cocktail -labs -reassesss 04/23/19 14:32 Slightly elevated Tbili of 1.6 w/ ALT of 62, new since 2018. Labs unremarkable otherwise and patient reports significant improvement with meds and able to tolerate p.o. Denies any excessive alcohol or excessive Tylenol use. No recent travel. Will dc with PMD follow-up. Reasons to return discussed with patient <Kriss Brownlee - Last Filed: 04/23/19 14:57> - Medical Decision Making I reviewed the case with the mid-level practitioner and agree with the mid-level practitioner's assessment, diagnosis and disposition. <Maria De Jesus Grimaldo - Last Filed: 04/23/19 16:56> Discharge - Discharge Information Problems reviewed: Yes <Kriss Brownlee - Last Filed: 04/23/19 14:57> <Maria De Jesus Grimaldo - Last Filed: 04/23/19 16:56> - Discharge Information Clinical Impression/Diagnosis: Epigastric abdominal pain Condition: Improved Disposition: HOME - Additional Discharge Information Prescriptions: Mag Hydrox/Al Hydrox/Simeth [Mylanta Suspension -] 30 ml PO Q6H #1 bottle Famotidine [Pepcid -] 20 mg PO BID #14 tablet Acetaminophen [Tylenol -] 1,000 mg PO Q6H #30 tablet Ondansetron HCl [Zofran] 4 mg PO Q8H #12 tablet - Patient Discharge Instructions Patient Printed Discharge Instructions: Gastritis Additional Instructions: take edications as prescribed and follow-up with your PMD Print Language: SOUTH [place]UDAN[place]
[2019-04-23 14:48] LABS: PH,URINE 7.5 (5.0-8.0); URINE APPEARANCE CLEAR; URINE BILIRUBIN NEGATIVE (NEGATIVE); URINE COLOR YELLOW; URINE GLUCOSE (UA) NEGATIVE (NEGATIVE); URINE KETONE NEGATIVE (NEGATIVE); URINE LEUK ESTERASE NEGATIVE (NEGATIVE); URINE NITRITE NEGATIVE (NEGATIVE); URINE PROTEIN NEGATIVE (NEGATIVE); URINE UROBILINOGEN 0.2 mg/dL (0.2-1.0)
[2019-04-23 15:02] VITALS: BP 117/62; PULSE 72
== END 2019-04-23 14:50 | disposition home or self-care (01) ==
LOC: JER 11:22
PROC: 3E033GC Introduction of Other Therapeutic Substance into Peripheral Vein, Percutaneous Approach (ICD-10-PCS; principal; 2019-04-23)
DX: R10.13 Epigastric pain (principal); K21.9 Gastro-esophageal reflux disease without esophagitis
CPT/HCPCS: 36415; 80053; 81003; 83690; 85025; 99284-25; J7030

== ENCOUNTER 2020-07-23 14:09 | Emergency (ER) | payer SELFPAY ==
[2020-07-23 14:32] VITALS: BP 129/64; PULSE 79; TEMP 98; BMI 27.5
[2020-07-23] MEDS ORDERED: DIPHTH,PERTUSS(ACELL),TET 0.5 ML DISP.SYRIN IM ONE ×2 (15:19→15:31)
== END 2020-07-23 16:00 | disposition home or self-care (01) ==
LOC: JER 14:09 → JERFT 14:09
PROC: 0HQGXZZ Repair Left Hand Skin, External Approach (ICD-10-PCS; principal; 2020-07-23)
PROC: 3E0234Z Introduction of Serum, Toxoid and Vaccine into Muscle, Percutaneous Approach (ICD-10-PCS; 2020-07-23)
DX: S61.412A Laceration without foreign body of left hand, initial encounter (principal)
CPT/HCPCS: 90715; 99284-25

== ENCOUNTER 2020-07-31 11:10 | Emergency (ER) | payer SELFPAY ==
[2020-07-31 11:16] VITALS: BP 114/72; PULSE 67; TEMP 98; BMI 28.7
== END 2020-07-31 11:50 | disposition home or self-care (01) ==
LOC: JERFT 11:10
DX: Z48.02 Encounter for removal of sutures (principal)
CPT/HCPCS: 99281-25